=== PATIENT | female | born 1940 | race Caucasian/White ===

== ENCOUNTER 2017-06-21 08:53 | Emergency (ER) | payer MEDICARE, BC ==
[2017-06-21 09:23] LABS: Urine Appearance Clear; Urine Bacteria TRACE; Urine Bilirubin Negative (NEGATIVE); Urine Blood 25 /ul (NEGATIVE); Urine Color Yellow; Urine Ketone Negative (NEGATIVE); Urine Nitrite Negative (NEGATIVE); Urine Protein Negative (NEGATIVE); Urine RBC 0-5 /hpf (0-5); Urine Urobilinogen Normal (NORMAL); Urine WBC 0-5 /hpf (0-5)
[2017-06-21 09:39] LABS: Hemoglobin 12.9 gm/dL (12.5-16.0); Mean Cell Volume 90.7 fl (78-100); Mean Corpuscular Hgb Conc 33.1 g/dl (32-36); Mean Platelet Volume 9.8 fl (6.0-9.5); Neutrophil # 5.1 K/mm3 (1.3-6.0); Neutrophil % 61.3 % (42-75.0); Platelet Count 300 K/mm3 (150-450); Red Cell Distribution Width 13.7 % (11.5-14.0); White Blood Count 8.4 K/mm3 (4.0-10.5)
[2017-06-21 09:50] LABS: Albumin * 3.5 gm/dl (3.4-5.0); BUN/Creatinine Ratio 13.9 (9.0-21.6); Bilirubin, Total 0.5 mg/dL (0.0-1.1); Ca. Corrected For Albumin 9.1 mg/dL (8.4-10.2); Potassium 4.3 mmol/L (3.4-4.6); Total Protein 7.4 gm/dL (6.2-8.2)
[2017-06-21 09:55] LABS: Anion Gap 14.1 mmol/L (6.8-13.8); Carbon Dioxide 26.2 mmol/L (24-32.6)
--- NOTE | 2017-06-21 10:12 | ERNOTE ---
Abdominal HPI - Narrative Date of Service: 06/21/17 - General Chief Complaint: Abdominal Pain Time Seen by Provider: 06/21/17 09:12 Source: patient Exam Limitations: no limitations - Immun/Allergies/Home Medications Allergies/Adverse Reactions: Allergies No Known Allergies Allergy (Verified 06/21/17 09:02) Home Medications: HOME MEDICATIONS Aspirin [Ecotrin] 81 mg PO DAILY 07/04/13 [Last Taken 06/21/17] Atorvastatin Calcium [Lipitor] 10 mg PO HS 07/04/13 [Last Taken 06/21/17] Metoprolol Succinate [Toprol Xl] 50 mg PO BID 07/04/13 [Last Taken 06/21/17] ALPRAZolam [Xanax] 0.25 mg PO HS 06/21/17 [Last Taken 06/21/17] Cefuroxime Axetil [Ceftin] 250 mg PO Q12H #20 tab 06/21/17 [Last Taken Unknown] - History of Present Illness Narrative: Patient presents to the ED for low abdominal pain moving into the right low back. This started last week around monday. She was seen Monday and had labs and CT. CT negative. Urine culture is positive and her Sx are most c/w UTI. No vomiting. No CP or SOB. Nothing really seems to make it better or worse. Pain moderate. Timing: constant Quality: moderate Activities at Onset: none Modifying Factors - (Improves): Present: other - nothing Modifying Factors - (Worsens): Present: other - nothing Associated Symptoms: Absent: chest pain, fever/chills, nausea, vomiting, shortness of breath Prior Abdominal Problems: Present: none Prior Treatment: Present: recently seen Review of Systems - Review of Systems Constitutional: Absent: fever Respiratory: Absent: shortness of breath Cardiology: Absent: chest pain Gastrointestinal/Abdominal: Present: See HPI Genitourinary: Absent: dysuria Skin: Absent: rash Neurological: Absent: weakness - Patient's Past Medical History Patient History - Medical: Anxiety Patient History - Cardiac/Respiratory: Hypertension, Hyperlipidemia, Myocardial Infarction Patient History - Surgical Procedures: Angioplasty, Cardiac stent - Family History Mother Family History - Medical: Family History - Cardiac/Respiratory: Myocardial Infarction Father Family History - Medical: Family History - Cancer: Lung - Social History Living Situations: home Smoking Status: Never smoker Physical Exam - Physical Exam General Appearance: Present: alert, no apparent distress, other - ambulatory, non-toxic, no distress. Well hydrated. Head Exam: Present: normal inspection, no evidence of injury Eye Exam: Normal inspection: bilateral, PERRL: bilateral Ears, Nose, Throat: Present: normal ENT inspection. Absent: dry mucous membranes Neck: Present: normal inspection Respiratory: Present: no respiratory distress, normal breath sounds, no accessory muscle use, lungs clear Cardiovascular/Chest: Present: regular rate, rhythm Gastrointestinal/Abdominal: Present: normal bowel sounds, nontender, soft, other - At this time I cannot elicit any tenderness in the abdomen. No masses. Back Exam: Present: normal inspection, no CVA tenderness. Absent: CVA tenderness (R), CVA tenderness (L) Extremity Exam: Present: normal inspection Neurological Exam: Present: alert, normal mood/affect, no motor/sensory deficits Skin Exam: Present: normal color, warm/dry ED Progress - Results and Orders Patient's Lab Results:: I have reviewed the patient's lab results. - Vital Signs Patient's Vital Signs:: I have reviewed the patient's vital signs. Vital Signs: Vital Signs 06/21/17 08:57 Temperature 37.2 C Pulse Rate 70 Respiratory 16 Rate Blood Pressure 133/63 O2 Sat by Pulse 100 Oximetry - Progress/Reassessment Chief Complaint: Abdominal Pain Progress Note-Subjective: 06/21/17 10:11 [address] the CT scan from Monday and the positive urine culture from . Nothing clinically to suggest sepsis, toxicity, appendicitis, kidney stone. Clinically most likely UTI given positive urine culture. Se is stable non-toxic , no distress. She feels loike going home. ABx with f/u tomorrow in the office. Departure - Departure Clinical Impression: UTI (urinary tract infection) Disposition: Home self-care Condition: Stable Instructions: Urine Culture and Sensitivity Testing Additional Instructions: Rest. Fluids. Follow-up with your doctor tomorrow at 3:45 for a re-check. Take antibiotics as directed. Return for fever, vomiting, increased pain or if your condition worsens or changes in any way. Referrals: Ronald Jurado DO [Primary Care Provider] - Prescriptions: Cefuroxime Axetil [Ceftin] 250 mg PO Q12H #20 tab
[2017-06-21 10:14] VITALS: BP 135/76
== END 2017-06-21 10:13 | disposition home or self-care (01) ==
LOC: ER 08:53
DX: N39.0 Urinary tract infection, site not specified (principal); I10 Essential (primary) hypertension; E78.5 Hyperlipidemia, unspecified; I25.2 Old myocardial infarction; F41.9 Anxiety disorder, unspecified

== ENCOUNTER 2017-06-23 07:33 | Observation (INO) | payer MEDICARE, BC ==
[2017-06-23] MEDS ORDERED: MORPHINE SULFATE 2 MG/ML DISP.SYRIN IV ONE (07:45)
[2017-06-23 07:56] LABS: Hematocrit 40.2 % (37.0-47.0); Hemoglobin 13.4 gm/dL (12.5-16.0); Mean Corpuscular Hemoglobin 30.3 pg (27-31); Mean Corpuscular Hgb Conc 33.3 g/dl (32-36); Mean Platelet Volume 9.9 fl (6.0-9.5); Neutrophil # 6.4 K/mm3 (1.3-6.0); Neutrophil % 68.8 % (42-75.0); Platelet Count 303 K/mm3 (150-450); Red Blood Count 4.42 M/mm3 (4.2-5.4); Red Cell Distribution Width 13.5 % (11.5-14.0); White Blood Count 9.3 K/mm3 (4.0-10.5)
[2017-06-23] MEDS ORDERED: MORPHINE SULFATE 2 MG/ML DISP.SYRIN ONE (07:57)
[2017-06-23] MEDS: NORMAL SALINE 1,000 ML IV PRN ×2 (08:11→16:49)
[2017-06-23 08:12] LABS: Albumin * 3.5 gm/dl (3.4-5.0); Anion Gap 14.6 mmol/L (6.8-13.8); BUN/Creatinine Ratio 9.4 (9.0-21.6); Bilirubin, Total 0.4 mg/dL (0.0-1.1); CRP 0.3 mg/dL (0.0-0.9); Ca. Corrected For Albumin 9.2 mg/dL (8.4-10.2); Calcium * 9.1 mg/dL (7.9-10.9); Carbon Dioxide 26.5 mmol/L (24-32.6); Potassium 4.1 mmol/L (3.4-4.6); Total Protein 7.6 gm/dL (6.2-8.2)
--- NOTE | 2017-06-23 08:41 | ERNOTE ---
ER Female HPI Date of Service: 06/23/17 Stated Complaint: Back pain Time Seen by Provider: 06/23/17 07:36 Source: patient Exam Limitations: no limitations Immunizations: IMMUNIZATION HX Immunizations Up to Date No History of Influenza Vaccine No Hx Pneumococcal Vaccination No Allergies/Adverse Reactions: Allergies No Known Allergies Allergy (Verified 06/23/17 08:23) Home Medications: HOME MEDICATIONS Aspirin [Ecotrin] 81 mg PO DAILY 07/04/13 [Last Taken 06/21/17] Atorvastatin Calcium [Lipitor] 10 mg PO HS 07/04/13 [Last Taken 06/21/17] Metoprolol Succinate [Toprol Xl] 25 mg PO BID 07/04/13 [Last Taken 06/21/17] ALPRAZolam [Xanax] 0.25 mg PO HS 06/21/17 [Last Taken 06/21/17] Cefuroxime Axetil [Ceftin] 250 mg PO Q12H #20 tab 06/21/17 [Last Taken Unknown] Ibuprofen [Motrin] 800 mg PO TID PRN 06/23/17 [Last Taken Unknown] - History of Present Illness Narrative: patient presents to the ED for ongoing right flank pain and upper abdominal pain. She was first seen 4 days ago for this. Had CT done at that time. SI saw her 3 days ago and she had evidene of UTI and I began ABx. She saw Dr Jurado yesterday. Today she has ongoing pain, taking ABx. She has decreased oral intake. No fever or vomiting. Right upper abdominal pain and right flank pain. no CP or SOB. Pain can be intense. Nothing clear ly makes it better or worse. Constant ache. Timing: Present: constant Quality: Present: moderate Onset Location: Present: other - right abdomen, moved to right flank Activities at Onset: Present: none Prior Abdominal Problems: Present: none Modifying Factors - (Improves): Present: other - nothing Modifying Factors - (Worsens): Present: other - nothing Associated Symptoms: Present: abdominal pain. Absent: fever/chills Prior Treatment: Present: recently seen Review of Systems - Review of Systems Constitutional: Absent: fever Respiratory: Absent: shortness of breath Cardiology: Absent: chest pain Gastrointestinal/Abdominal: Present: See HPI Genitourinary: Present: See HPI Musculoskeletal: Present: back pain Skin: Absent: rash Neurological: Absent: weakness All Other Systems: All systems neg except as marked - Patient's Past Medical History Patient History - Medical: Anxiety Patient History - Cardiac/Respiratory: Hypertension, Hyperlipidemia, Myocardial Infarction Patient History - Surgical Procedures: Angioplasty, Cardiac stent - Family History Mother Family History - Medical: Family History - Cardiac/Respiratory: Myocardial Infarction Father Family History - Medical: Family History - Cancer: Lung - Social History Living Situations: home Smoking Status: Current every day smoker - Immunizations Immunizations Up to Date: No Hx Pneumococcal Vaccination: No History of Influenza Vaccine: No Physical Exam - Physical Exam General Appearance: Present: alert, no apparent distress Head Exam: Present: normal inspection, no evidence of injury Eye Exam: Normal inspection: bilateral, PERRL: bilateral Ears, Nose, Throat: Present: normal ENT inspection Neck: Present: normal inspection Respiratory: Present: no respiratory distress, normal breath sounds, no accessory muscle use, lungs clear Cardiovascular/Chest: Present: regular rate, rhythm, normal peripheral pulses Gastrointestinal/Abdominal: Present: normal bowel sounds, soft, no organomegaly , other - right upper abdominal tenderness, no peritoneal signs Back Exam: Present: CVA tenderness (R) Extremity Exam: Present: normal inspection, no edema Neurological Exam: Present: alert, normal mood/affect, no motor/sensory deficits Skin Exam: Present: normal color ED Progress - Results and Orders Patient's Lab Results:: I have reviewed the patient's lab results. - Vital Signs Patient's Vital Signs:: I have reviewed the patient's vital signs. Vital Signs: Vital Signs 06/23/17 07:33 Temperature 36.6 C Pulse Rate 72 Respiratory 18 Rate Blood Pressure 182/92 O2 Sat by Pulse 97 Oximetry - Progress/Reassessment Chief Complaint: Genitourinary Problem Progress Note-Subjective: 06/23/17 09:30 Patient has pancreatitis. This test was normal 2 days ago. I spoke with Dr Jurado, will admit with [facility] . pt agreeable. Stable at this time. Departure Clinical Impression: Pancreatitis, Flank pain, UTI (urinary tract infection) - Departure Disposition: [facility] Condition: Stable
[2017-06-23 08:50] LABS: Urine Bilirubin Negative (NEGATIVE); Urine Ketone Negative (NEGATIVE); Urine Nitrite Negative (NEGATIVE); Urine Protein Negative (NEGATIVE); Urine Specific Gravity 1.015 SP.GR. (1.005-1.010); Urine Urobilinogen Normal (NORMAL); Urine pH 6.5 pH (5.0-7.0)
[2017-06-23 09:01] LABS: Urine Appearance Clear; Urine Bacteria None Seen; Urine Blood 5 /ul (NEGATIVE); Urine Color Yellow; Urine RBC 0-5 /hpf (0-5); Urine WBC 0-5 /hpf (0-5)
[2017-06-23] MEDS: NICOTINE 21 MG PATC TD SCH (12:37)
[2017-06-23] MEDS: KETOROLAC TROMETHAMINE 30 MG/ML VIAL IV PRN ×2 (12:37→18:57)
[2017-06-23] MEDS ORDERED: LORazepam 2 MG/ML DISP.SYRIN IV ONE (13:53)
[2017-06-23] MEDS ORDERED: LORazepam 2 MG/ML DISP.SYRIN IV SCH (15:00)
[2017-06-23] MEDS ORDERED: LORazepam 2 MG/ML DISP.SYRIN IV PRN (15:59)
[2017-06-23] MEDS ORDERED: IBUPROFEN 800 MG TABLET PO PRN (16:52)
[2017-06-23] MEDS ORDERED: CEFUROXIME AXETIL 250 MG TABLET PO SCH (17:00)
[2017-06-23] MEDS ORDERED: ROSUVASTATIN CALCIUM 10 MG TABLET PO SCH (21:00)
[2017-06-23] MEDS: METOPROLOL SUCCINATE 25 MG TABLET.SA PO SCH (21:08)
[2017-06-24] MEDS: NORMAL SALINE 1,000 ML IV PRN ×2 (00:53→08:58)
[2017-06-24 05:45] LABS: Albumin * 2.8 gm/dl (3.4-5.0); Anion Gap 14.1 mmol/L (6.8-13.8); BUN/Creatinine Ratio 9.9 (9.0-21.6); Bilirubin, Total 0.4 mg/dL (0.0-1.1); Calcium * 8.4 mg/dL (7.9-10.9); Carbon Dioxide 22.5 mmol/L (24-32.6); Potassium 3.6 mmol/L (3.4-4.6)
--- NOTE | 2017-06-24 06:38 | HP ---
Chief Complaint - Chief Complaint Date of Service: 06/23/17 Time of Service: 13:00 Chief Complaint: Abdominal Pain History of Present Illness: Eden is a 76 yo female with recent Group B Strep UTI treated with cefuroxime. She had positive cultures obtained from the ER and walk in clinic within the past week. She was seen in follow up by me in clinic yesterday () while still on antibiotics and was doing well. Her flank pain and abdominal pain and urinary frequency had improved and she had no concerns. The plan was for her to continue her cefuroxime until it was completed. She was taking Ibuprofen for pain control. Later that night she began experiencing severe right flank and right upper quadrant abdominal pain that led her to ultimately return to the ER this morning. She had repeat bloodwork that showed elevated lipase at 400, her prior lipase from a few days prior was less than 100. She does not drink alcohol. She reports a known history of gallstones and still has her gallbladder. She has not been eating much the last week due to the urinary tract infection. Her only other change has been the more frequent use of ibuprofen and the treatment of her UTI. - Patient's Past Medical History Patient History - Medical: Anxiety Patient History - Cardiac/Respiratory: Coronary Heart Disease, Hypertension, Hyperlipidemia, Myocardial Infarction Patient History - Surgical Procedures: Angioplasty, Back Surgery, Cataracts, Colonoscopy, Cardiac stent, Pneumothorax Patient History - Other: None - Family History Mother Family History - Medical: , Diabetes Type 2 Family History - Cardiac/Respiratory: Hypertension, Myocardial Infarction Father Family History - Medical: Family History - Cancer: Lung Brother Family History - Medical: Alzheimer's Disease Family History - Cardiac/Respiratory: Myocardial Infarction Family History - Cancer: Brain - Social History Living Situations: home Abuse History: No History of abuse Psych History: Hx of Anxiety Smoking Status: Current every day smoker Have you smoked in the past 12 months: Yes Do you dip or chew tobacco: No Patient requests Smoking Cessation Consult: No Initiate information on Smoking Cessation: No Alcohol Use: none Drug Use: none - Immunizations Immunizations Up to Date: No Hx Pneumococcal Vaccination: No History of Influenza Vaccine: No Review Of Systems (GEN) - Review of Systems Generalized/Overall Review: Absent: Weakness, Chills, Fever EENTM: Present: No Symptoms Reported Respiratory: Present: No Symptoms Reported Cardiac: Present: No Symptoms Reported Abdominal: Present: Abdominal Pain - RUQ Genitourinary: Present: Frequency. Absent: Burning, Urgency, Dysuria Neurological: Present: No Symptoms Reported Skin: Present: No Symptoms Reported Endocrine: Present: No Symptoms Reported Immunizations: IMMUNIZATION HX Immunizations Up to Date No History of Influenza Vaccine No Hx Pneumococcal Vaccination No Allergies/Adverse Reactions: Allergies Allergy/AdvReac Type Severity Reaction Status Date / Time No Known Allergies Allergy Verified 06/23/17 10:36 Home Medications: HOME MEDICATIONS Aspirin [Ecotrin] 81 mg PO DAILY 07/04/13 [Last Taken 06/23/17] Atorvastatin Calcium [Lipitor] 10 mg PO HS 07/04/13 [Last Taken 06/22/17] Metoprolol Succinate [Toprol Xl] 25 mg PO BID 07/04/13 [Last Taken 06/23/17] ALPRAZolam [Xanax] 0.5 - 1 tab PO HS 06/21/17 [Last Taken 06/22/17 0.125] Cefuroxime Axetil [Ceftin] 250 mg PO Q12H #20 tab 06/21/17 [Last Taken 06/23/17] Ibuprofen [Motrin] 800 mg PO TID PRN 06/23/17 [Last Taken 06/23/17] Exam - Exam Vital Signs: Vital Signs - Last Taken Temp 36.5 C 06/24/17 00:00 Pulse 71 06/24/17 00:00 Resp 18 06/24/17 00:00 BP 98/70 06/24/17 00:00 Pulse Ox 96 06/24/17 00:00 Constitutional: Present: Alert, Oriented x3, Cooperative ENT Exam: Present: hearing grossly normal Eye Exam: bilateral eye: normal inspection Respiratory: Present: lungs clear, normal breath sounds, no respiratory distress Cardiovascular/Chest: Present: regular rate, rhythm, no edema, no murmur Abdomen: Present: Normal bowel sounds, soft, tender - RUQ, epigastric, and right flank Skin Exam: Present: normal color, warm/dry, no cyanosis Diagnostic Studies: Abnormal Lab Results 06/24/17 Range/Units 04:40 Chloride 109 H (97-106) mmol/L Carbon Dioxide 22.5 L (24-32.6) mmol/L Anion Gap 14.1 H (6.8-13.8) mmol/L ALT 11 L (19-67) U/L Total Protein 6.0 L (6.2-8.2) gm/dL Albumin 2.8 L (3.4-5.0) gm/dl Laboratory Results WBC 9.3 K/mm3 (4.0-10.5) 06/23/17 07:46 RBC 4.42 M/mm3 (4.2-5.4) 06/23/17 07:46 Hgb 13.4 gm/dL (12.5-16.0) 06/23/17 07:46 Hct 40.2 % (37.0-47.0) 06/23/17 07:46 MCV 91.0 fl (78-100) 06/23/17 07:46 MCH 30.3 pg (27-31) 06/23/17 07:46 MCHC 33.3 g/dl (32-36) 06/23/17 07:46 RDW 13.5 % (11.5-14.0) 06/23/17 07:46 Plt Count 303 K/mm3 (150-450) 06/23/17 07:46 MPV 9.9 fl (6.0-9.5) H 06/23/17 07:46 Immature Gran % (Auto) 0.30 % (0.001-0.429) 06/23/17 07:46 Immature Gran # (Auto) 0.03 K/mm3 (0.000-0.0310) 06/23/17 07:46 Neutrophils % 68.8 % (42-75.0) 06/23/17 07:46 Lymphocytes % 21.4 % (20-51) 06/23/17 07:46 Monocytes % 5.2 % (0.0-9) 06/23/17 07:46 Eosinophils % 3.4 % (0.0-3.0) H 06/23/17 07:46 Basophils % 0.9 % (0.0-1.0) 06/23/17 07:46 Nucleated RBC % 0.0 k/mm3 (0-1) 06/23/17 07:46 Neutrophils # 6.4 K/mm3 (1.3-6.0) H 06/23/17 07:46 Lymphocytes # 2.0 k/mm3 (1.5-3.5) 06/23/17 07:46 Monocytes # 0.5 k/mm3 (0.0-1.0) 06/23/17 07:46 Eosinophils # 0.3 k/mm3 (0.0-0.7) 06/23/17 07:46 Absolute Basophils 0.1 k/mm3 (0.0-0.1) 06/23/17 07:46 Sodium 142 mmol/L (132-142) 06/24/17 04:40 Plasma Sodium 142 mmol/L (130-142) 06/24/17 04:40 Potassium 3.6 mmol/L (3.4-4.6) 06/24/17 04:40 Chloride 109 mmol/L (97-106) H 06/24/17 04:40 Carbon Dioxide 22.5 mmol/L (24-32.6) L 06/24/17 04:40 Anion Gap 14.1 mmol/L (6.8-13.8) H 06/24/17 04:40 BUN 8 mg/dL (3-23) 06/24/17 04:40 Creatinine 0.81 mg/dL (0.4-1.4) 06/24/17 04:40 Est GFR (Non-Af Amer) 73 mL/min (60-130) D 06/24/17 04:40 BUN/Creatinine Ratio 9.9 (9.0-21.6) 06/24/17 04:40 Random Glucose 78 mg/dL (70-110) 06/24/17 04:40 Calcium 8.4 mg/dL (7.9-10.9) 06/24/17 04:40 Calcium Adj for Albumin 9.0 mg/dL (8.4-10.2) 06/24/17 04:40 Total Bilirubin 0.4 mg/dL (0.0-1.1) 06/24/17 04:40 AST 13 U/L (0-48) 06/24/17 04:40 ALT 11 U/L (19-67) L 06/24/17 04:40 Alkaline Phosphatase 58 U/L (50-170) 06/24/17 04:40 C-Reactive Prot, Quant 0.3 mg/dL (0.0-0.9) 06/23/17 07:46 Total Protein 6.0 gm/dL (6.2-8.2) L 06/24/17 04:40 Albumin 2.8 gm/dl (3.4-5.0) L 06/24/17 04:40 Amylase 40 U/L (25-115) 06/24/17 04:40 Lipase 88 U/L (73-393) 06/24/17 04:40 Urine Color Yellow 06/23/17 07:56 Urine Appearance Clear 06/23/17 07:56 Urine pH 6.5 pH (5.0-7.0) 06/23/17 07:56 Ur Specific Sarita 1.015 SP.GR. (1.005-1.010) 06/23/17 07:56 Urine Protein Negative mg/dL (NEGATIVE) 06/23/17 07:56 Urine Glucose (UA) Negative mg/dL (NEGATIVE) 06/23/17 07:56 Urine Ketones Negative mg/dL (NEGATIVE) 06/23/17 07:56 Urine Blood 5 /ul (NEGATIVE) H 06/23/17 07:56 Urine Nitrate Negative (NEGATIVE) 06/23/17 07:56 Urine Bilirubin Negative mg/dl (NEGATIVE) 06/23/17 07:56 Urine Urobilinogen Normal EU/dl (NORMAL) 06/23/17 07:56 Ur Leukocyte Esterase 25 /ul (NEGATIVE) H 06/23/17 07:56 Urine RBC 0-5 /hpf (0-5) 06/23/17 07:56 Urine WBC 0-5 /hpf (0-5) 06/23/17 07:56 Ur Epithelial Cells 0-5 /hpf (0-5) 06/23/17 07:56 Urine Bacteria None seen (NONE) 06/23/17 07:56 Urine Culture Comments Culture to follow 06/23/17 07:56 Assessment/Plan - Narrative Narrative: Eden is a 76 yo female with: 1) Acute Pancreatitits (suspect early) - Lipase is slightly elevated at 400, but this is about 4x her level from 3 days ago. She does not drink alcohol and has known gallstones. She will be admitted to observation due to the slight elevation of her lipase and that this may be treated and corrected quickly with NPO and IVFs. Once she arrived to the floor a RUQ US was performed which did conform cholelithiasis without evidence of cholecystitis. Ducts were of normal size and there was no elevation of liver enzymes to suggest choledocolithiasis. The other possible contribultor is the ibuprofen that she has been taking for her UTI and Aspirin that she normally takes may cause pancreatitis, although the more likely cause is a transient gallstone. Will make NPO, give NS IVF, treat pain with toradol IV for now to avoid complications with narcotics. If Toradol does not control pain may need IV morphine. Will recheck enzymes in the AM. If pain and enzymes are improved, her diet may be advanced and she could be discharged with enzymes normal and she is doing well. Would plan to have her follow up with general surgery for consideration of cholecystectomy and she will avoid fatty foods and continue to avoid alcohol. She should avoid ibuprofen as this may have contributed to pancreatitis. 2) Group B Strep UTI - Was beeing treated with cefuroxime. As she is NPO will give her rocephin until NPO is removed and then she may return to cefuroxime to complete regimen. She has a repeat urine culture already ordered as outpatient. 3) Cholelithiasis - No evidence of acute cholecystitis, no need for general surgery as inpatient consult. However, she will need follow up with general surgery at discharge for possible cholecystectomy to prevent further episodes. Once diet is advanced she was educated to avoid fatty foods. 4) Social - No concerns - Assessment/Plan (1) Pancreatitis Problem: Acute Qualifiers: Chronicity: acute Pancreatitis type: biliary Acute pancreatitis complication: no infection or necrosis Qualified Code(s): K85.10 - Biliary acute pancreatitis without necrosis or infection (2) Cholelithiasis Problem: Acute Qualifiers: Cholelithiasis location: gallbladder Cholecystitis presence: without cholecystitis Biliary obstruction: without biliary obstruction Qualified Code(s): K80.20 - Calculus of gallbladder without cholecystitis without obstruction (3) UTI (urinary tract infection) Problem: Acute Qualifiers: Urinary tract infection type: acute cystitis Hematuria presence: without hematuria Qualified Code(s): N30.00 - Acute cystitis without hematuria
[2017-06-24] MEDS: KETOROLAC TROMETHAMINE 30 MG/ML VIAL IV PRN (06:48)
[2017-06-24] MEDS ORDERED: ASPIRIN 325 MG TABLET.DR PO SCH (09:00)
[2017-06-24] MEDS: METOPROLOL SUCCINATE 25 MG TABLET.SA PO SCH (09:07)
[2017-06-24] MEDS ORDERED: ASPIRIN 81 MG TABLET.DR PO SCH (09:30)
[2017-06-24 11:20] VITALS: BP 145/64
[2017-06-24] MEDS: NICOTINE 21 MG PATC TD SCH (13:04)
--- NOTE | 2017-06-24 13:11 | DS ---
(1) Cholelithiasis Problem: Acute Qualifiers: Cholelithiasis location: gallbladder Cholecystitis presence: with cholecystitis Cholecystitis acuity: acute and chronic Biliary obstruction: without biliary obstruction Qualified Code(s): K80.12 - Calculus of gallbladder with acute and chronic cholecystitis without obstruction (2) Flank pain Problem: Acute (3) Pancreatitis Problem: Acute Qualifiers: Chronicity: acute Pancreatitis type: biliary Acute pancreatitis complication: no infection or necrosis Qualified Code(s): K85.10 - Biliary acute pancreatitis without necrosis or infection (4) UTI (urinary tract infection) Problem: Acute Qualifiers: Urinary tract infection type: acute cystitis Hematuria presence: without hematuria Qualified Code(s): N30.00 - Acute cystitis without hematuria (5) Shingles Problem: Acute Qualifiers: Herpes zoster complications: unspecified herpes zoster complication Qualified Code(s): B02.8 - Zoster with other complications Description of Stay: Date of admission: 06/23/17 Date of discharge: 06/24/17 Description of stay: Eden is a 76 year old female who had been seen multiple times outpatient for a UTI. She continued to c/o right flank pain and RUQ pain. repeat blood work showed an elevated lipase at 400. she does not drink alcohol, has a history of gallstones and still has her gall bladder. Patient has had poor oral intake for the last week due to her UTI. Patient was admitted for observation for right flank pain, RUQ abdominal pain, UTI and possible early pancreatitis. Patient was initially made NPO, started on IV rocephin for her UTI and a US of the abdomen was ordered. The US of the abdomen showed a normal appearing pancreas and choleliaesis but not cholecystsis. recheck of labs in the am showed that the patient's lipase had returned to normal. In addition, a rash appeared the morning of discharge along the patient's right flank that is consistent with shingles and likely the cause of the patient's pain. As a precaution, the patient was still encouraged to follow up with general surgery regarding possible outpatient removal of her gall bladder. Ultram pain medication Rx was also given to the patient prior to discharge. A total time of 51 minutes was spent with the patient discussing the plan of care, prescription options, reconciliation of medications, preparing/dictating discharge summary. Procedures Performed: none Discharge Disposition: Home self care Disposition: Home self-care Condition: Undetermined Discharge Activity: Activity as tolerated Discharge Diet: Low fat/chol Referrals: Ronald Jurado DO [Primary Care Provider] - Problem Oriented Discharge Instructions to Patient/Family: Fat and Cholesterol Restricted Diet, Cholelithiasis, Low-Fat Diet for Pancreatitis or Gallbladder Conditions Additional Patient Instructions (free text): Low fat / Low cholesterol diet. Follow up with Dr Jurado in 2-4 weeks. Follow with General Surgery at next available appt for consultation regarding possible cholecystestomy Eat yogurt with probiotics 2 times a day, especially while on antibiotics. Continue Ceftin (antibiotic) as previously ordered. Complete Home Medications List: Complete Home Medication List: Aspirin [Aspirin Enteric Coated] 81 mg PO DAILY 07/04/13 Atorvastatin Calcium [Lipitor] 10 mg PO HS 07/04/13 Metoprolol Succinate [Toprol Xl] 25 mg PO BID 07/04/13 ALPRAZolam [Xanax] 0.5 - 1 tab PO HS 06/21/17 Ibuprofen [Motrin] 800 mg PO TID PRN 06/23/17 Acyclovir [Zovirax] 400 mg PO 5XD #35 tablet 06/26/17 Acyclovir [Zovirax] 400 mg PO 5XD #35 tablet 06/26/17 HYDROcodone/ACETAMINOPHEN [[place] 5-325] 1 each PO Q4H #20 tablet 06/26/17 HYDROcodone/ACETAMINOPHEN [[place] 5-325] 1 each PO Q4H #20 tablet 06/26/17
== END 2017-06-24 14:27 | disposition home or self-care (01) ==
LOC: ER 07:33 → MS 09:28
PROVIDERS: ADMIT Family Medicine; ATTEND Family Medicine
DX: K80.12 Calculus of gallbladder with acute and chronic cholecystitis without obstruction (principal); K85.10 Biliary acute pancreatitis without necrosis or infection; N30.00 Acute cystitis without hematuria; B95.1 Streptococcus, group B, as the cause of diseases classified elsewhere; B02.9 Zoster without complications; I10 Essential (primary) hypertension; E78.5 Hyperlipidemia, unspecified; F17.210 Nicotine dependence, cigarettes, uncomplicated; I25.10 Atherosclerotic heart disease of native coronary artery without angina pectoris; Z98.61 Coronary angioplasty status
CPT/HCPCS: 36415; 76700; 80053; 81001; 82150; 83690; 85025; 86140; 87040; 87086; 96365; 96374; 96375; 96376; 99284; G0378

== ENCOUNTER 2017-06-26 08:16 | Emergency (ER) | payer MEDICARE, BC ==
--- NOTE | 2017-06-26 09:41 | ERNOTE ---
ER Female HPI Stated Complaint: DOESN'T FEEL WELL Presenting Symptoms: other - patient complains of a rash in the right lower thoracic area that wraps around the trunk, and also continuing pain in the right upper quadrant Time Seen by Provider: 06/26/17 09:02 Source: patient, family Exam Limitations: no limitations Immunizations: IMMUNIZATION HX Immunizations Up to Date Yes History of Influenza Vaccine Yes Hx Pneumococcal Vaccination Yes Allergies/Adverse Reactions: Allergies No Known Allergies Allergy (Verified 06/26/17 08:44) Home Medications: HOME MEDICATIONS Aspirin [Aspirin Enteric Coated] 81 mg PO DAILY 07/04/13 [Last Taken 06/23/17] Atorvastatin Calcium [Lipitor] 10 mg PO HS 07/04/13 [Last Taken 06/22/17] Metoprolol Succinate [Toprol Xl] 25 mg PO BID 07/04/13 [Last Taken 06/23/17] ALPRAZolam [Xanax] 0.5 - 1 tab PO HS 06/21/17 [Last Taken 06/22/17 0.125] Ibuprofen [Motrin] 800 mg PO TID PRN 06/23/17 [Last Taken 06/23/17] Acyclovir [Zovirax] 400 mg PO 5XD #35 tablet 06/26/17 [Last Taken Unknown] Acyclovir [Zovirax] 400 mg PO 5XD #35 tablet 06/26/17 [Last Taken Unknown] HYDROcodone/ACETAMINOPHEN [[place] 5-325] 1 each PO Q4H #20 tablet 06/26/17 [Last Taken Unknown] HYDROcodone/ACETAMINOPHEN [[place] 5-325] 1 each PO Q4H #20 tablet 06/26/17 [Last Taken Unknown] - History of Present Illness Narrative: Patient seen here last week and has known cholecystitis, a known urinary tract infection is currently undergoing treatment and a new rash on the right lower thoracic area pain she rates the pain as thoracic area is at least moderate in intensity and gets it perhaps a 7 on a scale of 1-10 Timing: Present: constant Quality: Present: moderate Onset Location: Present: other - right lower thoracic Activities at Onset: Present: none Prior Abdominal Problems: Present: none Sexual [place] History: Present: single partner Associated Symptoms: Present: abdominal pain Prior Treatment: Present: recently seen, treated by physician Review of Systems - Review of Systems Constitutional: Present: See HPI EYE: Present: no symptoms reported ENT: Present: no symptoms reported Respiratory: Present: no symptoms reported Cardiology: Present: no symptoms reported Gastrointestinal/Abdominal: Present: abdominal pain Genitourinary: Present: no symptoms reported Musculoskeletal: Present: no symptoms reported Skin: Present: rash Neurological: Present: no symptoms reported Endocrine: Present: no symptoms reported Hematologic/Lymphatic: Present: no symptoms reported Psych: Present: no symptoms reported - Patient's Past Medical History Patient History - Medical: Anxiety, Other - cholelithiasis Patient History - Cardiac/Respiratory: Coronary Heart Disease, Hypertension, Hyperlipidemia, Myocardial Infarction Patient History - Surgical Procedures: Angioplasty, Back Surgery, Cataracts, Colonoscopy, Cardiac stent, Pneumothorax Patient History - Other: None - Family History Mother Family History - Medical: , Diabetes Type 2 Family History - Cardiac/Respiratory: Hypertension, Myocardial Infarction Father Family History - Medical: Family History - Cancer: Lung Brother Family History - Medical: Alzheimer's Disease Family History - Cardiac/Respiratory: Myocardial Infarction Family History - Cancer: Brain - Social History Living Situations: spouse Abuse History: No History of abuse Psych History: Hx of Anxiety Smoking Status: Current every day smoker Have you smoked in the past 12 months: Yes Do you dip or chew tobacco: No Alcohol Use: none Drug Use: none - Immunizations Immunizations Up to Date: Yes Hx Pneumococcal Vaccination: Yes History of Influenza Vaccine: Yes Physical Exam - Physical Exam General Appearance: Present: wd/wn, alert, moderate distress Eye Exam: Normal inspection: bilateral, PERRL: bilateral Ears, Nose, Throat: Present: normal ENT inspection, H, normal pharynx Neck: Present: normal inspection, nontender Respiratory: Present: no respiratory distress, normal breath sounds, no accessory muscle use, chest nontender, lungs clear Cardiovascular/Chest: Present: regular rate, rhythm, no murmur, normal peripheral pulses Gastrointestinal/Abdominal: Present: normal bowel sounds, nondistended, soft, no organomegaly, tenderness - in the right upper quadrant with an equivocal Horvath sign Rectal Exam: Present: deferred Back Exam: Present: normal inspection, normal range of motion Extremity Exam: Present: normal inspection, non-tender, no edema, normal range of motion Neurological Exam: Present: alert, oriented, normal mood/affect Skin Exam: Present: normal color, warm/dry Lymphatic Exam: Present: no adenopathy ED Progress - Vital Signs Patient's Vital Signs:: I have reviewed the patient's vital signs. Vital Signs: Vital Signs 06/26/17 08:36 Temperature 36.8 C Pulse Rate 63 Respiratory 14 Rate Blood Pressure 155/70 O2 Sat by Pulse 98 Oximetry - Progress/Reassessment Chief Complaint: Genitourinary Problem Plan - Plan Plan: The patient appears to be improving considerably on her urinary tract infection , however her pain in the right upper quadrant persists. I have reviewed the gallbladder ultrasound results which revealed cholelithiasis, however I do believe we need to consider the possibility of a gallbladder dyskinesia. Patient has a new rash in the right lower thoracic area which I feel starts at the midline and wraps around the trunk and is indicative of shingles. Patient will need to be on an antiviral medicine and the pain is intolerable so I will give her a prescription for [place]. As this will interfere with a HIDA scan I will discuss with Dr. Jurado the possibility of doing the scan next week after she been off pain medicine for 48 hours. I will have her follow-up with Dr. Jurado next week. Departure Clinical Impression: UTI (urinary tract infection) Qualifiers: Urinary tract infection type: acute cystitis Hematuria presence: without hematuria Qualified Code(s): N30.00 - Acute cystitis without hematuria Cholelithiasis Qualifiers: Cholelithiasis location: gallbladder Cholecystitis presence: with cholecystitis Cholecystitis acuity: acute and chronic Biliary obstruction: without biliary obstruction Qualified Code(s): K80.12 - Calculus of gallbladder with acute and chronic cholecystitis without obstruction Shingles Qualifiers: Herpes zoster complications: unspecified herpes zoster complication Qualified Code(s): B02.8 - Zoster with other complications - Departure Disposition: Home self-care Instructions: Shingles, [id number], Cholelithiasis, [id number], Urinary Tract Infection, Adult, [id number] Referrals: Ronald Jurado DO [Primary Care Provider] - Prescriptions: Acyclovir [Zovirax] 400 mg PO 5XD #35 tablet Acyclovir [Zovirax] 400 mg PO 5XD #35 tablet HYDROcodone/ACETAMINOPHEN [[place] 5-325] 1 each PO Q4H #20 tablet HYDROcodone/ACETAMINOPHEN [[place] 5-325] 1 each PO Q4H #20 tablet
[2017-06-26 09:48] VITALS: BP 156/72
== END 2017-06-26 09:48 | disposition home or self-care (01) ==
LOC: ER 08:16
DX: N30.00 Acute cystitis without hematuria (principal); K80.12 Calculus of gallbladder with acute and chronic cholecystitis without obstruction; B02.8 Zoster with other complications; F41.9 Anxiety disorder, unspecified; I25.2 Old myocardial infarction; I10 Essential (primary) hypertension; E78.5 Hyperlipidemia, unspecified; F17.200 Nicotine dependence, unspecified, uncomplicated

== ENCOUNTER 2017-07-12 19:12 | Emergency (ER) | payer MEDICARE, BC ==
--- NOTE | 2017-07-12 21:00 | ERNOTE ---
<Brook-Anat Mcneal - Last Filed: 07/12/17 23:13> Abdominal HPI - Narrative Date of Service: 07/12/17 - General Chief Complaint: Constipation Time Seen by Provider: 07/12/17 20:49 Source: patient Exam Limitations: no limitations - Immun/Allergies/Home Medications Immunizatons: IMMUNIZATION HX Immunizations Up to Date Yes History of Influenza Vaccine Yes Hx Pneumococcal Vaccination Yes Allergies/Adverse Reactions: Allergies No Known Allergies Allergy (Verified 07/12/17 19:55) Home Medications: HOME MEDICATIONS Aspirin [Aspirin Enteric Coated] 81 mg PO DAILY 07/04/13 [Last Taken 06/23/17] Atorvastatin Calcium [Lipitor] 10 mg PO HS 07/04/13 [Last Taken 06/22/17] Metoprolol Succinate [Toprol Xl] 25 mg PO BID 07/04/13 [Last Taken 06/23/17] ALPRAZolam [Xanax] 0.5 - 1 tab PO HS 06/21/17 [Last Taken 06/22/17 0.125] Ibuprofen [Motrin] 800 mg PO TID PRN 06/23/17 [Last Taken 06/23/17] Acyclovir [Zovirax] 400 mg PO 5XD #35 tablet 06/26/17 [Last Taken Unknown] Acyclovir [Zovirax] 400 mg PO 5XD #35 tablet 06/26/17 [Last Taken Unknown] HYDROcodone/ACETAMINOPHEN [[place] 5-325] 1 each PO Q4H #20 tablet 06/26/17 [Last Taken Unknown] HYDROcodone/ACETAMINOPHEN [[place] 5-325] 1 each PO Q4H #20 tablet 06/26/17 [Last Taken Unknown] Lidocaine 50 gm TP QID PRN #50 oint...g. 07/13/17 [Last Taken Unknown] Nitroglycerin [Nitro-Bid] 1 inch TD BID #60 oint...g. 07/13/17 [Last Taken Unknown] - History of Present Illness Narrative: Pt. comes in with c/o abdominal and rectal pain for six hours prior to arrival Pt. denies any SOB, CP, NVD, fever, recent illness or injury. Pt. states that she has not had a bm in 5 days. Pt. states that she had to strain for a long period of time today and her rectum is very painful as well. Family states that they gave the pt. a whole xanax pill instead of her usual 1/2 so she could be calm enough to come into the ER. Review of Systems - Review of Systems Constitutional: Present: no symptoms reported. Absent: recent illness, fever, chills, weakness, fatigue, malaise EYE: Present: no symptoms reported ENT: Present: no symptoms reported Respiratory: Present: no symptoms reported. Absent: shortness of breath, cough , wheezing Cardiology: Present: no symptoms reported. Absent: chest pain, palpitations, edema Gastrointestinal/Abdominal: Present: constipation, abdominal pain, other - rectal pain Genitourinary: Present: no symptoms reported Musculoskeletal: Present: no symptoms reported. Absent: back pain, joint pain Skin: Present: no symptoms reported. Absent: rash, change in hair/nails Neurological: Present: no symptoms reported All Other Systems: All systems neg except as marked - Patient's Past Medical History Patient History - Medical: Anxiety Patient History - Cardiac/Respiratory: Coronary Heart Disease, Hypertension, Hyperlipidemia, Myocardial Infarction Patient History - Cancer: No Hx of Cancer Patient History - Surgical Procedures: Angioplasty, Back Surgery, Cataracts, Colonoscopy, Cardiac stent, Pneumothorax Patient History - Other: None - Family History Mother Family History - Medical: , Diabetes Type 2 Family History - Cardiac/Respiratory: Hypertension, Myocardial Infarction Father Family History - Medical: Family History - Cancer: Lung Brother Family History - Medical: Alzheimer's Disease Family History - Cardiac/Respiratory: Myocardial Infarction Family History - Cancer: Brain - Social History Living Situations: home Abuse History: No History of abuse Psych History: Hx of Anxiety, Current tx/ever been on anti-depressants or anti- anxiety meds Smoking Status: Former smoker Alcohol Use: none Drug Use: none - Immunizations Immunizations Up to Date: Yes Hx Pneumococcal Vaccination: Yes History of Influenza Vaccine: Yes Physical Exam - Physical Exam General Appearance: Present: wd/wn, alert, no apparent distress Head Exam: Present: normal inspection, no evidence of injury Eye Exam: Normal inspection: bilateral, PERRL: bilateral, EOMI: bilateral Ears, Nose, Throat: Present: normal ENT inspection, normal pharynx Neck: Present: normal inspection, nontender. Absent: lymphadenopathy (R), lymphadenopathy (L) Respiratory: Present: no respiratory distress, normal breath sounds, no accessory muscle use, chest nontender, lungs clear Cardiovascular/Chest: Present: regular rate, rhythm, no murmur, normal peripheral pulses Gastrointestinal/Abdominal: Present: nontender Rectal Exam: Present: normal rectal tone, other - soft stool and small fissure noted on exterior anterior anus Back Exam: Present: normal inspection, normal range of motion, no CVA tenderness , no vertebral tenderness Extremity Exam: Present: normal inspection, non-tender, normal range of motion, no edema Neurological Exam: Present: alert, oriented, normal mood/affect, no motor/ sensory deficits Skin Exam: Present: normal color, warm/dry. Absent: pallor, skin rash ED Progress - Date and Time Seen: Date and Time: 07/12/17 21:[address] Perez and as pt. has air fluid levels on abdomen he feels pt. needs CT scan of her abdomen. - Results and Orders Patient's Lab Results:: I have reviewed the patient's lab results. - Vital Signs Patient's Vital Signs:: I have reviewed the patient's vital signs. Vital Signs: Vital Signs 07/12/17 19:49 Temperature 36.8 C Pulse Rate 68 Respiratory 18 Rate Blood Pressure 106/46 O2 Sat by Pulse 95 Oximetry - Progress/Reassessment Chief Complaint: Constipation Progress:: Unchanged - Transfer of Care Physician Sign Out: Anat Islas Receiving Physician: Jose Perez Pending Results: CT/MRI results Departure - Departure Clinical Impression: Rectal fissure Abdominal pain Qualifiers: Abdominal location: unspecified location Qualified Code(s): R10.9 - Unspecified abdominal pain Constipation Qualifiers: Constipation type: unspecified constipation type Qualified Code(s): K59.00 - Constipation, unspecified Disposition: Other home health Condition: Good Instructions: Anal Fissure, Adult, Atva-hd-Gley, Constipation, Adult, Easy-to- Read Additional Instructions: Case management will have Home Health contact you to set up services Referrals: Ronald Jurado DO [Primary Care Provider] - Prescriptions: Lidocaine 50 gm TP QID PRN #50 oint...g. PRN Reason: Pain Nitroglycerin [Nitro-Bid] 1 inch TD BID #60 oint...g. <Jose Perez - Last Filed: 07/14/17 07:13> Abdominal HPI - Immun/Allergies/Home Medications Immunizatons: IMMUNIZATION HX Immunizations Up to Date Yes History of Influenza Vaccine Yes Hx Pneumococcal Vaccination Yes - Family History Mother Family History - Medical: , Diabetes Type 2 Family History - Cardiac/Respiratory: Hypertension, Myocardial Infarction Father Family History - Medical: Family History - Cancer: Lung Brother Family History - Medical: Alzheimer's Disease Family History - Cardiac/Respiratory: Myocardial Infarction Family History - Cancer: Brain ED Progress - Results and Orders Patient's Lab Results:: I have reviewed the patient's lab results. - Vital Signs Vital Signs: Vital Signs 07/12/17 07/12/17 07/12/17 19:49 22:51 23:45 Temperature 36.8 C Pulse Rate 68 78 80 Respiratory 18 20 18 Rate Blood Pressure 106/46 160/83 148/72 O2 Sat by Pulse 95 95 98 Oximetry 07/13/17 01:00 Temperature Pulse Rate 76 Respiratory 18 Rate Blood Pressure 146/78 O2 Sat by Pulse 95 Oximetry - X-Ray X-Ray #1 X-Ray: abdomen Interpretation: Interp. by me X-ray Comments: Mod to severe stool retention: - CT/Ultrasound CT/Ultrasound Narrative: CT abd pelvis; IMPRESSION: 1. Distended gallbladder with layering stones and possible sludge. Although no secondary signs of cholecystitis is appreciated acute cholecystitis or chronic cholecystitis cannot be excluded. Clinical correlation is advised. 2. Extensive fecal retention compatible with likely constipation worst within the rectum. 3. Indeterminate masslike lesion in the left lower lobe subpleural region which is enlarging, consider dedicated CT chest for full evaluation. 4. For the remainder of chronic findings please see above. Preliminary report was delivered to the emergency room via the [facility] service at July 13, 2017 on 1:22 AM. Electronically signed by Samuel Alberts M.D.. - Progress/Reassessment Progress Note-Subjective: 07/13/17 01:40 spoke with the patients family in her presence. Discussed CT results and the large stool load that remains in her colon. Discussed plan to use lidocaine ointment and nitro paste followed by enema. Family is not comfortable taking her home without something being done here. 07/13/17 07:13 Pt had multiple BM's after lidocaine and nitro paste were applied some very large, all soft to liquid. Due to this no enema was done. Pt states she feels much better after having BM. Pt's family is still resistant to taking her home. Case managment came to the ED and discussed options. They decided on [facility] to help the family with her.
[2017-07-12 21:10] LABS: Hematocrit 35.2 % (37.0-47.0); Hemoglobin 11.9 gm/dL (12.5-16.0); Mean Cell Volume 90.3 fl (78-100); Mean Corpuscular Hemoglobin 30.5 pg (27-31); Mean Corpuscular Hgb Conc 33.8 g/dl (32-36); Mean Platelet Volume 9.5 fl (6.0-9.5); Neutrophil # 17.6 K/mm3 (1.3-6.0); Neutrophil % 91.5 % (42-75.0); Platelet Count 327 K/mm3 (150-450); Red Cell Distribution Width 13.9 % (11.5-14.0); White Blood Count 19.2 K/mm3 (4.0-10.5)
[2017-07-12 21:25] LABS: Albumin * 3.4 gm/dl (3.4-5.0); Anion Gap 14.8 mmol/L (6.8-13.8); BUN/Creatinine Ratio 11.8 (9.0-21.6); Bilirubin, Total 0.3 mg/dL (0.0-1.1); Ca. Corrected For Albumin 9.2 mg/dL (8.4-10.2); Potassium 3.8 mmol/L (3.4-4.6); Total Protein 6.9 gm/dL (6.2-8.2)
[2017-07-12] MEDS ORDERED: DIATRIZOATE MEGLUMINE, SODIUM 30 ML BTL ONE (21:26)
[2017-07-12] MEDS ORDERED: DIATRIZOATE MEGLUMINE, SODIUM 30 ML BTL PO ONE (21:27)
[2017-07-12 21:29] LABS: Urine Bilirubin Negative (NEGATIVE); Urine Blood Negative /ul (NEGATIVE); Urine Ketone 5 mg/dL (NEGATIVE); Urine Nitrite Negative (NEGATIVE); Urine Protein Negative (NEGATIVE); Urine Specific Gravity 1.015 SP.GR. (1.005-1.010); Urine Urobilinogen Normal (NORMAL)
[2017-07-12 21:38] LABS: Urine Appearance Clear; Urine Bacteria None Seen; Urine Color Yellow; Urine Hyaline Cast TRACE /LPF; Urine RBC None Seen /hpf (0-5); Urine WBC None Seen /hpf (0-5)
[2017-07-12] MEDS ORDERED: LIDOCAINE HCL 20 ML UDC MM ONE (21:48)
[2017-07-13] MEDS ORDERED: LIDOCAINE 5 APPL TUBE TP ONE (01:49)
[2017-07-13] MEDS ORDERED: NITROGLYCERIN 1 INCH PACKET TD ONE ×2 (01:51→01:56)
[2017-07-13] MEDS ORDERED: LIDOCAINE 35 APPL TUBE TP ONE ×2 (01:55→01:56)
[2017-07-13 07:40] VITALS: BP 115/50
== END 2017-07-13 07:33 | disposition home health service (06) ==
LOC: ER 19:12
DX: K59.00 Constipation, unspecified (principal); R10.9 Unspecified abdominal pain; K60.2 Anal fissure, unspecified; Z87.891 Personal history of nicotine dependence; I25.2 Old myocardial infarction

== ENCOUNTER 2017-08-18 08:28 | Observation (INO) | payer MEDICARE, BC ==
--- NOTE | 2017-08-18 13:28 | HP ---
Chief Complaint - Chief Complaint Date of Service: 08/18/17 Time of Service: 13:27 Chief Complaint: Pneumothorax History of Present Illness: Eden is a 76 yo female who was recently found to have a lung nodule. PET showed suspicious activity and a biopsy was performed by radiology today. Post procedure chest xray showed small pneumothorax. The patient was asymptomatic. Follow up chest xrays showed pneumothorax to be stable but still present. Patient remained asymptomatic. She was placed on high flow oxygen to help prevent worsening pneumo and radiology requested evaluation and consideration of overnight observation. Eden reports feeling well. She has some minimal pain with deep inhalation but no significant pain and no shortness of breath. Oxygen saturation has remained normal throughout monitoring. - Patient's Past Medical History Patient History - Medical: Anxiety Patient History - Cardiac/Respiratory: Coronary Heart Disease, Hypertension, Hyperlipidemia, Myocardial Infarction Patient History - Cancer: No Hx of Cancer Patient History - Surgical Procedures: Angioplasty, Back Surgery, Cataracts, Colonoscopy, Cardiac stent, Pneumothorax Patient History - Other: None - Family History Mother Family History - Medical: , Diabetes Type 2 Family History - Cardiac/Respiratory: Hypertension, Myocardial Infarction Father Family History - Medical: Family History - Cancer: Lung Brother Family History - Medical: Alzheimer's Disease Family History - Cardiac/Respiratory: Myocardial Infarction Family History - Cancer: Brain - Social History Abuse History: No History of abuse Psych History: Hx of Anxiety, Current tx/ever been on anti-depressants or anti- anxiety meds Smoking Status: Former smoker Alcohol Use: none Drug Use: none - Immunizations Immunizations Up to Date: Yes Hx Pneumococcal Vaccination: Yes History of Influenza Vaccine: Yes Review Of Systems (GEN) - Review of Systems Generalized/Overall Review: Present: No Symptoms Reported EENTM: Present: No Symptoms Reported Respiratory: Absent: Cough, Shortness of Breath, Wheezing Cardiac: Present: Chest Pain. Absent: Palpitations Abdominal: Present: No Symptoms Reported Genitourinary: Present: No Symptoms Reported Musculoskeletal: Present: No Symptoms Reported Neurological: Present: No Symptoms Reported Skin: Present: No Symptoms Reported Endocrine: Present: No Symptoms Reported Immunizations: IMMUNIZATION HX Immunizations Up to Date Yes History of Influenza Vaccine Yes Hx Pneumococcal Vaccination Yes Allergies/Adverse Reactions: Allergies Allergy/AdvReac Type Severity Reaction Status Date / Time No Known Allergies Allergy Verified 07/12/17 19:55 Home Medications: HOME MEDICATIONS Aspirin [Aspirin Enteric Coated] 81 mg PO DAILY 07/04/13 [Last Taken 08/11/17 08 :00] Atorvastatin Calcium [Lipitor] 25 mg PO HS 07/04/13 [Last Taken 08/17/17 21:00] Metoprolol Succinate [Toprol Xl] 25 mg PO BID 07/04/13 [Last Taken 08/17/17 21: 00] ALPRAZolam [Xanax] 0.5 - 1 tab PO HS PRN 06/21/17 [Last Taken 08/18/17 08:00] Ibuprofen [Motrin] 800 mg PO TID PRN 06/23/17 [Last Taken 06/23/17] Lidocaine 50 gm TP QID PRN 08/18/17 [Last Taken 08/17/17 21:00] Exam - Exam Vital Signs: Vital Signs 08/18/17 13:45 Temperature 36.4 C L Pulse Rate 70 Respiratory 20 Rate Blood Pressure 132/72 O2 Sat by Pulse 100 Oximetry Constitutional: Present: Alert, Oriented x3, Cooperative ENT Exam: Present: hearing grossly normal Eye Exam: bilateral eye: normal inspection Respiratory: Present: chest non-tender, lungs clear, normal breath sounds, no respiratory distress Cardiovascular/Chest: Present: regular rate, rhythm, no edema Abdomen: Present: Normal bowel sounds, soft, nontender, nondistended Skin Exam: Present: normal color, warm/dry, no cyanosis Neurologic: Present: normal mood/affect, oriented x 3 Appearance: Present: appropriate appearance, appropriate insight Eye contact: Present: cooperative, good eye contact, normal speech Assessment/Plan - Assessment/Plan (1) Pneumothorax Assessment: Eden is a 76 yo female with a pneumothorax that developed during lung nodule biopsy. Patient is asymptomatic, but will need further observation. Will admit to observation. Will obtain chest xray in the morning. All chest xrays today have shown a stable, nonexpanding pneumothorax. Will place on high flow oxygen to help seal pneumo. If patient has worsening symptoms will repeat chest xray stat. If morning chest xray is stable will discharge to home. Expect 1 midnight hospital course. Problem: Active
[2017-08-18] MEDS ORDERED: NICOTINE 21 MG PATC TD SCH (19:00)
[2017-08-18] MEDS ORDERED: LIDOCAINE 35 APPL TUBE TP PRN (20:08)
[2017-08-18] MEDS ORDERED: ALPRAZolam 1 MG TABLET PO PRN (20:08)
[2017-08-18] MEDS ORDERED: IBUPROFEN 800 MG TABLET PO PRN (20:08)
[2017-08-18] MEDS ORDERED: METOPROLOL SUCCINATE 50 MG TABLET.SA PO SCH (21:00)
[2017-08-18] MEDS: ASPIRIN 81 MG TABLET.DR PO SCH (21:18)
--- NOTE | 2017-08-19 05:48 | DS ---
(1) Pneumothorax Problem: Active Description of Stay: Admission HPI by Dr. Ronald Jurado. Eden is a 76 yo female who was recently found to have a lung nodule. PET showed suspicious activity and a biopsy was performed by radiology today. Post procedure chest xray showed small pneumothorax. The patient was asymptomatic. Follow up chest xrays showed pneumothorax to be stable but still present. Patient remained asymptomatic. She was placed on high flow oxygen to help prevent worsening pneumo and radiology requested evaluation and consideration of overnight observation. Eden reports feeling well. She has some minimal pain with deep inhalation but no significant pain and no shortness of breath. Oxygen saturation has remained normal throughout monitoring. Hospital Problem/s 1.) Pneumothorax. Pt was admitted for an overnight stay following a lung biopsy procedure that led to LT apical Pneumothorax, which measured approximately < 10%. She had repeated follow-up CXRs which showed the Pneumothorax was still present but stable and pt was asymptomatic. Pt was monitored during the overnight and she had no acute events arising from the pneumothorax. The plan is to repeat another CXR this am and if stable or no expansion, she will be considered to be in a stable state to be discharge home. Procedures Performed: see notes below - Lung Biobsy at the [facility] dept. Discharge Disposition: Home self care Disposition: Home self-care Condition: Good Discharge Activity: Activity as tolerated Discharge Diet: General/regular food Referrals: Ronald Jurado DO [Primary Care Provider] - Problem Oriented Discharge Instructions to Patient/Family: Pneumothorax Additional Patient Instructions (free text): Please make a TCM appointment at discharge. Thank you! Elidia @ Ext [phone] Complete Home Medications List: Complete Home Medication List: Aspirin [Aspirin Enteric Coated] 81 mg PO DAILY 07/04/13 Atorvastatin Calcium [Lipitor] 25 mg PO HS 07/04/13 Metoprolol Succinate [Toprol Xl] 25 mg PO BID 07/04/13 ALPRAZolam [Xanax] 0.5 - 1 tab PO HS PRN 06/21/17 Ibuprofen [Motrin] 800 mg PO TID PRN 06/23/17 Lidocaine 50 gm TP QID PRN 08/18/17
[2017-08-19] MEDS: ASPIRIN 81 MG TABLET.DR PO SCH ×2 (08:50→08:55)
[2017-08-19] MEDS ORDERED: METOPROLOL SUCCINATE 25 MG TABLET.SA PO SCH (09:00)
[2017-08-19 10:27] VITALS: BP 117/66
[2017-08-19] MEDS ORDERED: ROSUVASTATIN CALCIUM 10 MG TABLET PO SCH (21:00)
== END 2017-08-19 12:58 | disposition home health service (06) ==
LOC: RAD 08:28 → AMB 08:28 → EDSTATUS 09:00 → MS 13:17 → INTOOBSV 13:17
PROVIDERS: ADMIT Family Medicine; ATTEND Family Medicine
PROC: 0BBJ3ZX Excision of Left Lower Lung Lobe, Percutaneous Approach, Diagnostic (ICD-10-PCS; principal; 2017-08-18)
DX: J95.811 Postprocedural pneumothorax (principal); Y84.8 Other medical procedures as the cause of abnormal reaction of the patient, or of later complication, without mention of misadventure at the time of the procedure; Y78.3 Surgical instruments, materials and radiological devices (including sutures) associated with adverse incidents; I10 Essential (primary) hypertension; I25.10 Atherosclerotic heart disease of native coronary artery without angina pectoris
CPT/HCPCS: 32405; 71020; 77012; 88104; 88305; 88329; G0378